=== PATIENT | female | born 1980 | race Caucasian/White ===

== ENCOUNTER → 2023-03-04 | Outpatient (CLI) | payer BC ==
--- NOTE | 2023-03-15 12:28 | EM ---
EVENT MONITOR STUDY PERFORMED: This is a 7-day event monitor. INDICATION: Cardiac arrhythmia. FINDINGS: This 7-day event monitor shows sinus rhythm with episodes of sinus tachycardia with a maximum heart rate of 120 beats per minute. The patient had multiple symptoms of nausea, vomiting, feeling tired, weak, and chest tightness, and these were not associated with any Holter abnormalities. CONCLUSION: This 7-day event monitor shows sinus rhythm with episodes of sinus tachycardia. MMODL / IJN: [id number] /
== END | disposition home or self-care (01) ==
LOC: RADECHMAIN 07:27
PROVIDERS: ATTEND Family Medicine
DX: I49.9 Cardiac arrhythmia, unspecified (principal); R00.0 Tachycardia, unspecified
CPT/HCPCS: 93270

== ENCOUNTER 2023-09-01 08:32 | Day surgery (SDC) | payer BC ==
[2023-08-29 12:53] VITALS: BMI 25.7
[~2023-09-01 08:32] MED LIST: SODIUM CHLORIDE 0.9% 1,000 ML IV SCH
[2023-09-01] MEDS: SODIUM CHLORIDE 0.9% 500 ML 500 ML IV ONE (09:00)
[2023-09-01 09:07] VITALS: BP 139/84; RESP 16
[2023-09-01 10:40] VITALS: PULSE 103
--- NOTE | 2023-09-01 12:49 | P.EPPROC ---
- EP Procedure Note Electrophysiology Procedure Note: Diagnosis Recurrent presyncope Twelve-lead EKG shows sinus rhythm normal PA narrow QRS normal ST segments No delta waves no epsilon waves normal QT interval Tilt table test per protocol Baseline blood pressure 137/74 mmHg baseline heart rate 62 beats a minute Patient was tilted upright in angle of 70 degrees per protocol Mild increase in heart rate, no drop in blood pressure She complained of being warm and woozy and the whole body felt tingly Later her legs felt very weak She was very lightheaded and nauseous and wanted to lay down Impression No evidence for neurocardiogenic syncope Very mild orthostatic intolerance that is out of proportion to her symptoms of nausea vomiting lightheadedness feeling warm and woozy
== END 2023-09-01 10:21 ==
LOC: CATHEP 08:32
PROVIDERS: ATTEND Internal Medicine Clinical Cardiac Electrophysiology
DX: R55 Syncope and collapse (principal); F41.9 Anxiety disorder, unspecified; E78.5 Hyperlipidemia, unspecified; Z79.01 Long term (current) use of anticoagulants; Z79.899 Other long term (current) drug therapy
CPT/HCPCS: 93660